=== PATIENT | male | born 1945 | race Caucasian/White ===

== ENCOUNTER 2023-10-20 14:07 | Outpatient (CLI) | payer MEDICARE | END 2023-10-20 14:08 | disposition home or self-care (01) | LOC: CSHCT 14:07 | PROVIDERS: ATTEND Urology | DX: N13.30 Unspecified hydronephrosis (principal); N13.2 Hydronephrosis with renal and ureteral calculous obstruction; N32.89 Other specified disorders of bladder; N40.0 Benign prostatic hyperplasia without lower urinary tract symptoms | CPT/HCPCS: 74176 ==